=== PATIENT | female | born 1995 | race Caucasian/White ===

== ENCOUNTER 2016-09-06 18:20 | Emergency (ER) | payer BC, OTHER ==
[~2016-09-06] VITALS: Ht 162.6 cm; Wt 65.9 kg
[~2016-09-06 18:20] MED LIST: CLON0.1T PO; IBUP-232 PO; LISD20CA PO; LO LTAB PO; METR0.7528 VAGINAL; VALT1TAB PO
[2016-09-06 18:33] VITALS: BP 121/82; PULSE 85; RESP 16; TEMP 99.8; O2SAT 100
--- NOTE | 2016-09-06 19:04 | PD ---
HPI Chief Complaint: Related Problem Time Seen by Provider: 18:51 Travel History International Travel<30 days: No Contact w/Intl Traveler<30days: No Traveled to known affect area: No History of Present Illness HPI This 21-year-old female is complaining of vaginal bleeding. She says that she is 5 weeks and 6 days . She had some vaginal bleeding yesterday. She says she went to the emergency department at [facility] in [place]. She had an ultrasound and was told she did not have an ectopic . I believe heartbeat was not seen but was clearly a gestational size yolk sac intrauterine. PFSH Past Medical History Asthma: Yes Depression: Yes Diminished Hearing: No Immunizations Current: Yes Tetanus Vaccination: < 5 Years Influenza Vaccination: No ?: LMP: 07/27/16 Past Surgical History Genitourinary Surgery: Yes (Bladder as child) Social History Alcohol Use: No Tobacco Use: No Substance Use: No (Denies today) Allergies-Medications (Allergen,Severity, Reaction): Coded Allergies: No Known Allergies (Unverified , 09/06/16) Reported Meds & Prescriptions Reported Meds & Active Scripts Active Reported Valtrex (Valacyclovir HCl) 1 Gm Tab 1,000 Mg PO DAILY Review of Systems General / Constitutional: No: Fever, Chills Eyes: No: Diploplia, Blurred Vision HENT: No: Headaches Cardiovascular: No: Chest Pain or Discomfort, Palpitations Respiratory: No: Cough, Shortness of Breath Gastrointestinal: No: Vomiting, Diarrhea Genitourinary: No: Urgency, Frequency Musculoskeletal: No: Myalgias, Arthralgias Skin: No Rash Neurologic: No: Weakness, Dizziness Psychiatric: No: Anxiety Hematologic/Lymphatic: No: Easy Bruising Physical Exam Narrative GENERAL: Well-developed female SKIN: Warm and dry. HEAD: Atraumatic. Normocephalic. EYES: Pupils equal and round. No scleral icterus. No injection or drainage. ENT: No nasal bleeding or discharge. Mucous membranes pink and moist. NECK: Trachea midline. No JVD. CARDIOVASCULAR: Regular rate and rhythm. No murmur appreciated. RESPIRATORY: No accessory muscle use. Clear to auscultation. Breath sounds equal bilaterally. GASTROINTESTINAL: Abdomen soft, non-tender, nondistended. Hepatic and splenic margins not palpable. ASSURANCE SENIOR MANAGER: There is a minimal amount of dried blood in the vaginal vault. The os is closed. Uterus not palpably enlarged there is no tenderness MUSCULOSKELETAL: No obvious deformities. No clubbing. No cyanosis. No edema. NEUROLOGICAL: Awake and alert. No obvious cranial nerve deficits. Motor grossly within normal limits. Normal speech. PSYCHIATRIC: Appropriate mood and affect; insight and judgment normal. Data Data Last Documented VS Vital Signs Date Time Temp Pulse Resp B/P Pulse Ox O2 Delivery O2 Flow Rate FiO2 09/06/16 20:44 84 18 09/06/16 20:44 118/62 100 Room Air 09/06/16 18:33 99.8 Orders Complete Blood Count With Diff (09/06/16 18:59) Beta Hcg (Quant/Titer) (09/06/16 18:59) Labs Laboratory Tests Test 09/06/16 19:30 White Blood Count 10.8 TH/MM3 Red Blood Count 4.37 MIL/MM3 Hemoglobin 12.4 GM/DL Hematocrit 37.7 % Mean Corpuscular Volume 86.1 FL Mean Corpuscular Hemoglobin 28.3 PG Mean Corpuscular Hemoglobin 32.8 % Concent Red Cell Distribution Width 15.1 % Platelet Count 280 TH/MM3 Mean Platelet Volume 8.1 FL Neutrophils (%) (Auto) 67.8 % Lymphocytes (%) (Auto) 21.6 % Monocytes (%) (Auto) 6.7 % Eosinophils (%) (Auto) 3.4 % Basophils (%) (Auto) 0.5 % Neutrophils # (Auto) 7.3 TH/MM3 Lymphocytes # (Auto) 2.3 TH/MM3 Monocytes # (Auto) 0.7 TH/MM3 Eosinophils # (Auto) 0.4 TH/MM3 Basophils # (Auto) 0.1 TH/MM3 CBC Comment DIFF FINAL Differential Comment Human Chorionic Gonadotropin, [address] MIU/ML Quant MDM Medical Decision Making Medical Screen Exam Complete: Yes Emergency Medical Condition: Yes Medical Record Reviewed: Yes Differential Diagnosis Differential includes demise, intrauterine , threatened AB Narrative Course Titer today is 28,530s which is higher than the value from yesterday. She'll be released with instructions to follow-up with her own doctor is not bleeding or having pain at this time Diagnosis Primary Impression: Threatened Disposition: DISCHARGE HOME Condition: Stable Dominic Hurst MD Sep 06, 2016 19:04
[2016-09-06 19:45] VITALS: BP 122/63; PULSE 93; RESP 18; O2SAT 100
[2016-09-06 20:08] LABS: AUTOMATED NEUTROPHIL # 7.3 TH/MM3 (1.8-7.7); BASOPHIL # 0.1 TH/MM3 (0-0.2); BASOPHIL % 0.5 % (0.0-2.0); EOSINOPHIL # 0.4 TH/MM3 (0-0.4); EOSINOPHIL % 3.4 % (0.0-4.0); HEMATOCRIT 37.7 % (35.0-46.0); HEMO FLAGS DIFF FINAL; LYMPH % 21.6 % (9.0-44.0); LYMPHOCYTE # 2.3 TH/MM3 (1.0-4.8); MEAN CELL VOLUME 86.1 FL (80.0-100.0); MEAN CORPUSCULAR HEMOGLOBIN 28.3 PG (27.0-34.0); MEAN CORPUSCULAR HGB CONC 32.8 % (32.0-36.0); MONO % 6.7 % (0.0-8.0); NEUT % 67.8 % (16.0-70.0); PLATELET COUNT 280 TH/MM3 (150-450); RED BLOOD COUNT 4.37 MIL/MM3 (4.00-5.30); RED CELL DISTRIBUTION WIDTH 15.1 % (11.6-17.2); WHITE BLOOD COUNT 10.8 TH/MM3 (4.0-11.0)
[2016-09-06 20:39] LABS: BETA HCG QUANT 28530 MIU/ML (0-5)
[2016-09-06 20:44] VITALS: BP 118/62; PULSE 84; RESP 18; O2SAT 100
== END 2016-09-06 21:09 | disposition home or self-care (01) ==
LOC: PHED 18:20
DX: O20.0 Threatened abortion (principal); J45.909 Unspecified asthma, uncomplicated
CPT/HCPCS: 84702; 85025; 99284

== ENCOUNTER 2017-05-04 14:57 | Inpatient (IN) | payer BC, MEDICAID ==
[2017-05-04] VITALS (20 sets, daily range): BP systolic 113–142; BP diastolic 67–88; PULSE 81–103; RESP 17–18; TEMP 98–98.1
[~2017-05-04] VITALS: Ht 162.6 cm; Wt 89.4 kg
[~2017-05-04 14:57] MED LIST changes: -CLON0.1T PO; -IBUP-232 PO; -LISD20CA PO; -LO LTAB PO; -METR0.7528 VAGINAL
[2017-05-04] MEDS: LACTATED RINGER'S 1000 ML INJ 1,000 ML IV SCH ×2 (16:12→17:29)
[2017-05-04] MEDS ORDERED: LACTATED RINGER'S 1000 ML INJ 1,000 ML IV PRN (16:12)
[2017-05-04] MEDS ORDERED: MINERAL OIL 10 ML VIAL TOPICAL PRN (16:15)
[2017-05-04] MEDS ORDERED: MISOPROSTOL 100 MCG TAB VAGINAL ONE (16:15)
[2017-05-04] MEDS ORDERED: LIDOCAINE HCL 1% 50 ML VIAL I-DERMAL PRN (16:15)
[2017-05-04] MEDS ORDERED: PENICILLIN G POTASSIUM INJ 5,000,000 UNITS in SODIUM CHLORIDE 0.9% INJ 100 ML IV ONE (16:15)
[2017-05-04] MEDS ORDERED: OXYTOCIN 30 UNITS-500ML PREMIX 500 ML IV ONE (16:15)
[2017-05-04] MEDS ORDERED: CITRIC ACID-SODIUM CITRATE LIQ 30 ML UDC PO SCH (16:15)
[2017-05-04] MEDS ORDERED: SODIUM CHLORIDE 0.9% FLUSH 10 ML FLUSH IV FLUSH PRN (16:15)
[2017-05-04] MEDS ORDERED: SODIUM CHLORID 0.9% 500 ML INJ 500 ML IV PRN (16:15)
[2017-05-04] MEDS ORDERED: LIDOCAINE HCL 1% 50 ML VIAL INFIL PRN (16:15)
[2017-05-04] MEDS ORDERED: SODIUM CHLOR 0.9% 1000 ML INJ 1,000 ML IV PRN (16:32)
[2017-05-04 16:48] LABS: AUTOMATED NEUTROPHIL # 10.6 TH/MM3 (1.8-7.7); BASOPHIL % 0.3 % (0.0-2.0); EOSINOPHIL # 0.2 TH/MM3 (0-0.4); EOSINOPHIL % 1.4 % (0.0-4.0); HEMATOCRIT 40.1 % (35.0-46.0); HEMOGLOBIN 13.6 GM/DL (11.6-15.3); LYMPH % 11.9 % (9.0-44.0); LYMPHOCYTE # 1.6 TH/MM3 (1.0-4.8); MEAN CELL VOLUME 88.2 FL (80.0-100.0); MEAN PLATELET VOLUME 9.6 FL (7.0-11.0); MONO % 5.3 % (0.0-8.0); MONOCYTE # 0.7 TH/MM3 (0-0.9); NEUT % 81.1 % (16.0-70.0); PLATELET COUNT 190 TH/MM3 (150-450); RED BLOOD COUNT 4.54 MIL/MM3 (4.00-5.30); WHITE BLOOD COUNT 13.1 TH/MM3 (4.0-11.0)
[2017-05-04 17:53] LABS: BACTERIA, URINE FEW /hpf; BILIRUBIN, URINE NEG (NEG); BLOOD, URINE SMALL (NEG); GLUCOSE,URINE TRACE mg/dL (NEG); KETONE, URINE NEG (NEG); NITRITE,URINE NEG (NEG); SQUAMOUS EPITHELIAL CELL URINE 17 /hpf (0-5); URINE COLOR YELLOW (YELLW/STRAW); URINE LEUKOCYTE ESTERASE SMALL (NEG)
--- NOTE | 2017-05-04 18:29 | HHI.HP ---
HPI Chief Complaint induction at 40 weeks BP 150/90 Date Seen: May 04, 2017 Time Seen: 16:00 Travel History International Travel<30 Days: No Contact w/Intl Traveler<30Days: No Known Affected Area: No History of Present Illness HPI 22 yo induction for hypertension and 40 weeks Weeks Gestation: 40 Para: 0 : 1 History Past Medical History Medical History: Denies Significant Hx Past Surgical History Surgical History: No Previous Surgery Family History Family History: Negative Social History Alcohol Use: No Tobacco Use: No Substance Abuse: No Allergies-Medications (Allergen,Severity, Reaction): Coded Allergies: No Known Allergies (Unverified Allergy, Unknown, 05/04/17) Home Meds Reported Medications Valacyclovir (Valtrex) 1 Gm Tab, 1000 MG PO DAILY for Mgmt Viral Infection, #30 TAB 0 Refills 05/26/16 Review of Systems Except as stated in HPI: all other systems reviewed are Neg Physical Exam Vital Signs Date Time Temp Pulse Resp B/P (MAP) Pulse Ox O2 Delivery O2 Flow Rate FiO2 05/04/17 17:17 96 17 139/75 (96) 05/04/17 17:00 98.0 Narrative GENERAL: Well-nourished, well-developed patient. SKIN: Warm and dry. HEAD: Normocephalic and atraumatic. EYES: No scleral icterus. No injection or drainage. ENT: No nasal drainage noted. Mucous membranes pink. Airway patent. NECK: Supple, trachea midline. No JVD. CARDIOVASCULAR: Regular rate and rhythm without murmurs, gallops, or rubs. RESPIRATORY: Breath sounds equal bilaterally. No accessory muscle use. BREASTS: Bilateral exam showed no masses , no retractions, no nipple discharge. ABDOMEN/GI: Abdomen soft, non-tender, bowel sounds present, no rebound, no guarding Gravid to [-] weeks size Fundal Height: [-] GENITOURINARY: External Genitalia: intact and normal in appearance BUS glands: [-] Cervix: [-] Dilatation: ft Effacement: 80 Station: [-] Presentation: vtx Membranes: intact Uterine Contractions: no FHT's: Category: 1 Baseline: [-] Reactive: [-] Variability: [-] Decels: [-] EXTREMITIES: No cyanosis or edema. BACK: Nontender without obvious deformity. No CVA tenderness. NEUROLOGICAL: Awake and alert. Motor and sensory grossly within normal limits. Five out of 5 muscle strength in all muscle groups. Normal speech. Caprini VTE Risk Assessment Caprini VTE Risk Assessment: No/Low Risk (score <= 1) Caprini Risk Assessment Model Point Value = 1 Point Value = 2 Point Value = 3 Point Value = 5 Age 41-60 Minor surgery BMI > 25 kg/m2 Swollen legs Varicose veins or History of unexplained or recurrent spontaneous Oral contraceptives or hormone replacement Sepsis (< 1 month) Serious lung disease, including pneumonia (< 1 month) Abnormal pulmonary function Acute myocardial infarction Congestive heart failure (< 1 month) History of inflammatory bowel disease Medical patient at bed rest Age 61-74 Arthroscopic surgery Major open surgery (> 45 min) Laparoscopic surgery (> 45 min) Malignancy Confined to bed (> 72 hours) Immobilizing plaster cast Central venous access Age >= 75 History of VTE Family history of VTE Factor V Leiden Prothrombin [id number] Lupus anticoagulant Anticardiolipin antibodies Elevated serum homocysteine Heparin-induced thrombocytopenia Other congenital or acquired thrombophilia Stroke (< 1 month) Elective arthroplasty Hip, pelvis, or leg fracture Acute spinal cord injury (< 1 month) Prophylaxis Regimen Total Risk Factor Score Risk Level Prophylaxis Regimen 0-1 Low Early ambulation 2 Moderate Order ONE of the following: *Sequential Compression Device (SCD) *Heparin 5000 units SQ BID 3-4 Higher Order ONE of the following medications: *Heparin 5000 units SQ TID *Enoxaparin/Lovenox 40 mg SQ daily (WT < 150 kg, CrCl > 30 mL/min) *Enoxaparin/Lovenox 30 mg SQ daily (WT < 150 kg, CrCl > 10-29 mL/min) *Enoxaparin/Lovenox 30 mg SQ BID (WT < 150 kg, CrCl > 30 mL/min) AND/OR *Sequential Compression Device (SCD) 5 or more Highest Order ONE of the following medications: *Heparin 5000 units SQ TID (Preferred with Epidurals) *Enoxaparin/Lovenox 40 mg SQ daily (WT < 150 kg, CrCl > 30 mL/min) *Enoxaparin/Lovenox 30 mg SQ daily (WT < 150 kg, CrCl > 10-29 mL/min) *Enoxaparin/Lovenox 30 mg SQ BID (WT < 150 kg, CrCl > 30 mL/min) AND *Sequential Compression Device (SCD) Data Data Vital Signs Reviewed: Yes Orders Orders Admit To Inpatient (05/04/17 ) Code Status (05/04/17 16:12) Vital Signs (Adult) .Per protocol (05/04/17 16:12) Heart (05/04/17 16:12) Amnioinfusion (05/04/17 16:12) Urinary Catheter Management .ONCE (05/04/17 16:12) Lactated Ringer's 1000 Ml Inj (Lr 1000 M (05/04/17 16:12) Lactated Ringer's 1000 Ml Inj (Lr 1000 M (05/04/17 16:12) Sodium Chlorid 0.9% 500 Ml Inj (Ns 500 M (05/04/17 16:15) Sodium Chlor 0.9% 1000 Ml Inj (Ns 1000 M (05/04/17 16:32) Lidocaine 1% Inj (50 Ml) (Xylocaine 1% I (05/04/17 16:15) Citric Acid-Sodium Citrate Liq (Bicitra (05/04/17 16:15) Fentanyl Inj (Fentanyl Inj) (05/04/17 16:15) Fentanyl Inj (Fentanyl Inj) (05/04/17 16:15) Penicillin G Potassium Inj (Pfizerpen-G (05/04/17 16:15) Penicillin G Potassium Inj (Pfizerpen-G (05/04/17 20:00) Complete Blood Count With Diff (05/04/17 16:12) Hold Clot (05/04/17 16:12) Abo/Rh Blood Type (05/04/17 16:12) Urinalysis - C+S If Indicated (05/04/17 16:12) Drug Screen, Random Urine (05/04/17 16:12) Resp Oxygen Non Rebreathe Mask (05/04/17 ) ^ Epidural / Intrathecal Infus (05/04/17 16:12) Oxytocin 30 Units-500ml Premix (Pitocin (05/04/17 16:15) Lidocaine 1% Inj (50 Ml) (Xylocaine 1% I (05/04/17 16:15) Light Mineral Oil (Muri-Lube Oil) (05/04/17 16:15) Specimen To Be Collected PRN (05/04/17 16:12) Specimen To Be Collected PRN (05/04/17 16:12) Admit To Inpatient (05/04/17 ) ^ Labor Induction (05/04/17 16:14) ^ Vaginal Insert (05/04/17 16:14) ^ Vaginal Lavage (05/04/17 16:14) Heart (05/04/17 16:14) Misoprostol (Cytotec) (05/04/17 16:15) Sodium Chloride 0.9% Flush (Ns Flush) (05/04/17 21:00) Sodium Chloride 0.9% Flush (Ns Flush) (05/04/17 16:15) Inpatient Certification (05/04/17 ) Influenza (Quad) Vaccine Inj (Flu (Quadr (05/05/17 10:00) Group B Strep: Positive Labs Laboratory Tests Test 05/04/17 15:20 05/04/17 16:45 White Blood Count 13.1 Red Blood Count 4.54 Hemoglobin 13.6 Hematocrit 40.1 Mean Corpuscular Volume 88.2 Mean Corpuscular Hemoglobin 30.0 Mean Corpuscular Hemoglobin Concent 34.0 Red Cell Distribution Width 15.0 Platelet Count 190 Mean Platelet Volume 9.6 Neutrophils (%) (Auto) 81.1 Lymphocytes (%) (Auto) 11.9 Monocytes (%) (Auto) 5.3 Eosinophils (%) (Auto) 1.4 Basophils (%) (Auto) 0.3 Neutrophils # (Auto) 10.6 Lymphocytes # (Auto) 1.6 Monocytes # (Auto) 0.7 Eosinophils # (Auto) 0.2 Basophils # (Auto) 0.0 CBC Comment DIFF FINAL Differential Comment Urine Color YELLOW Urine Turbidity HAZY Urine pH 6.0 Urine Specific [place] 1.014 Urine Protein TRACE Urine Glucose (UA) TRACE Urine Ketones NEG Urine Occult Blood SMALL Urine Nitrite NEG Urine Bilirubin NEG Urine Urobilinogen LESS THAN 2.0 Urine Leukocyte Esterase SMALL Urine RBC 10 Urine WBC 4 Urine Squamous Epithelial Cells 17 Urine Bacteria FEW Microscopic Urinalysis Comment CULT NOT INDICATED Urine Opiates Screen NEG Urine Barbiturates Screen NEG Urine Amphetamines Screen NEG Urine Benzodiazepines Screen NEG Urine Cocaine Screen NEG Urine Cannabinoids Screen NEG Assessment/Plan Problem List: (1) 40 weeks gestation of ICD Codes: Z3A.40 - 40 weeks gestation of (2) Hypertension affecting in third trimester ICD Codes: O16.3 - Unspecified maternal hypertension, third trimester Assessment and Plan induction with cytotec, patient counselled about off label use Harsha Neumann MD May 04, 2017 18:29
[2017-05-04 20:13] LABS: ALT (GPT) 19 U/L (10-53); AST (GOT) 17 U/L (15-37); BICARBONATE 21.2 MEQ/L (21.0-32.0); BLOOD UREA NITROGEN 10 MG/DL (7-18); CALCIUM 8.6 MG/DL (8.5-10.1); CHLORIDE 105 MEQ/L (98-107); CREATININE 0.64 MG/DL (0.50-1.00); GLOMERULAR FILTRATION RATE 115 ML/MIN (>89); GLUCOSE,RANDOM 94 MG/DL (74-106); SODIUM (NA) 135 MEQ/L (136-145)
[2017-05-04 20:16] LABS: ALKALINE PHOSPHATASE 146 U/L (45-117); TOTAL BILIRUBIN ADULT 0.5 MG/DL (0.2-1.0); TOTAL PROTEIN 6.9 GM/DL (6.4-8.2)
[2017-05-04] MEDS: SODIUM CHLORIDE 0.9% FLUSH 10 ML FLUSH IV FLUSH SCH (21:00)
[2017-05-04] MEDS ORDERED: fentaNYL 2MCG-BUPIV 0.125% INJ 100 ML ONE (22:28)
[2017-05-04] MEDS ORDERED: DO NOT ADMINISTER ANTICOAGULANTS PRN (23:00)
[2017-05-04] MEDS ORDERED: ePHEDrine/NS 25 MG/5 ML SYR IV PUSH PRN (23:00)
[2017-05-04] MEDS ORDERED: NO SYSTEM NARCOTICS PRN (23:00)
[2017-05-04] MEDS ORDERED: fentaNYL 2MCG-BUPIV 0.125% 100 ML EPIDURAL SCH (23:00)
[2017-05-05] VITALS (27 sets, daily range): BP systolic 101–136; BP diastolic 50–103; PULSE 75–125; RESP 16–18; TEMP 97.7–98.5
[2017-05-05] MEDS ORDERED: OXYTOCIN 30 UNITS-500ML PREMIX 500 ML ONE (00:54)
[2017-05-05] MEDS: PENICILLIN G POTASSIUM INJ 2,500,000 UNITS in SODIUM CHLORIDE 0.9% INJ 100 ML IV SCH ×2 (01:00→01:14)
[2017-05-05] MEDS ORDERED: OXYTOCIN 10 UNIT/ML AMP ONE (04:48)
--- NOTE | 2017-05-05 05:13 | PD.OB.DELI ---
Weeks gestation: 40 Gest age assessed date: May 04, 2017 Gest age assessed time: 22:00 Pt started active labor?: Yes Active labor start date: May 05, 2017 Active labor start time: 00:01 Medical induction of labor?: Yes (hypertension) Medical induction start date: May 05, 2017 Medical induction start time: 00:01 Artificial rupture of membrane: No (2100) Anesthesia: Epidural Episiotomy: None Vaginal Delivery: Normal Presentation: Occiput anterior Nuchal Cord: None Delayed cord clamping (45 sec): Yes Delivery date: May 05, 2017 Delivery time: 04:43 One Minute : 9 Five Minute : 9 Placenta: Spontaneous delivery, Intact, 3 vessel cord Laceration: No lacerations Estimated blood loss: 300 Harsha Neumann MD May 05, 2017 05:13
[2017-05-05] MEDS ORDERED: OXYTOCIN 30 UNITS-500ML PREMIX 500 ML IV SCH (05:15)
[2017-05-05] MEDS ORDERED: ALUMINUM/MAGNESIUM/SIMETH 30 ML CUP PO PRN (05:15)
[2017-05-05] MEDS ORDERED: ZOLPIDEM TARTRATE 5 MG TAB PO PRN (05:15)
[2017-05-05] MEDS ORDERED: oxyCODONE/ACETAMINOPHEN 5 MG/325 MG TAB PO PRN (05:15)
[2017-05-05] MEDS ORDERED: ONDANSETRON ODT 4 MG TAB PO PRN (05:15)
[2017-05-05] MEDS ORDERED: SODIUM CHLORIDE 0.9% FLUSH 10 ML FLUSH IV FLUSH PRN (05:15)
[2017-05-05] MEDS: ACETAMINOPHEN 325 MG TAB PO PRN ×2 (09:53→15:48)
[2017-05-05] MEDS: IBUPROFEN 600 MG TAB PO PRN ×2 (09:55→15:48)
[2017-05-05] MEDS ORDERED: INFLUENZA VIRUS VACCINE (QUADRIVALENT) 0.5 ML SYR IM ONE (10:00)
[2017-05-05] MEDS: DOCUSATE SODIUM 50 MG/SENNA 8.6 MG TAB PO PRN (15:48)
[2017-05-05] MEDS ORDERED: MEASLES, MUMPS, RUBELLA VACCINE 0.5 ML VIAL SQ ONE (16:00)
[2017-05-05] MEDS ORDERED: DIPHTH/TETANUS/ACEL PERTUSSIS (BOOSTER) 0.5 ML VIAL/PFS IM ONE (16:00)
[2017-05-05] MEDS: SODIUM CHLORIDE 0.9% FLUSH 10 ML FLUSH IV FLUSH SCH ×2 (21:00)
[2017-05-06] MEDS: IBUPROFEN 600 MG TAB PO PRN ×4 (00:37→23:21)
[2017-05-06] MEDS: oxyCODONE/ACETAMINOPHEN 5 MG/325 MG TAB PO PRN ×4 (04:02→19:44)
[2017-05-06 08:00] VITALS: BP 127/74; PULSE 76; RESP 14; TEMP 97.6
[2017-05-06] MEDS: SODIUM CHLORIDE 0.9% FLUSH 10 ML FLUSH IV FLUSH SCH ×2 (09:00)
[2017-05-06] MEDS: WITCH HAZEL 50%/GLYCERIN 12.5% 40 PAD JAR TOPICAL PRN (09:13)
[2017-05-06] MEDS: BENZOCAINE 20% TOPICAL SPRAY 60 ML CAN TOPICAL PRN (09:13)
[2017-05-06] MEDS: DOCUSATE SODIUM 50 MG/SENNA 8.6 MG TAB PO PRN (09:14)
--- NOTE | 2017-05-06 12:36 | HHI.OB ---
Subjective Post Day: 1 Remarks doing well ready for dc in am Objective Vitals/I&O Vital Signs Date Time Temp Pulse Resp B/P (MAP) Pulse Ox O2 Delivery O2 Flow Rate FiO2 05/06/17 08:00 97.6 76 14 127/74 (91) 05/05/17 19:41 97.7 75 16 115/68 (84) 05/05/17 15:00 98.0 82 18 120/67 (84) Objective Remarks GENERAL: Well-nourished, well-developed patient. ABDOMEN/GI: Abdomen soft, non-tender. Fundus: Firm, non-tender at umbilicus. GENITOURINARY: Light to moderate bleeding. EXTREMITIES: No cyanosis or edema, non-tender, without signs of DVT. Medications and IVs Current Medications Medications (Trade) Dose Ordered Sig/Monica Route Start Time Stop Time Status Last Admin (NS Flush) 2 ml BID IV FLUSH 05/04/17 21:00 05/04/17 21:00 (NS Flush) 2 ml UNSCH PRN IV FLUSH 05/04/17 16:15 (NS Flush) 2 ml BID IV FLUSH 05/05/17 09:00 (NS Flush) 2 ml UNSCH PRN IV FLUSH 05/05/17 05:15 (Tylenol) 650 mg Q4H PRN PO 05/05/17 05:15 05/05/17 15:48 (Motrin) 600 mg Q6H PRN PO 05/05/17 05:15 05/06/17 09:13 (Percocet 5-325 Mg) 1 tab Q4H PRN PO 05/05/17 05:15 05/06/17 09:14 (Percocet 5-325 Mg) 2 tab Q4H PRN PO 05/05/17 05:15 05/05/17 20:10 (Americaine 20% Top Spr) 1 spray Q4H PRN TOPICAL 05/05/17 05:15 05/06/17 09:13 (Tucks Pads) 1 applic QID PRN TOPICAL 05/05/17 05:15 05/06/17 09:13 (Mayte-Colace) 2 tab Q12H PRN PO 05/05/17 05:15 05/06/17 09:14 (Ambien) 5 mg HS PRN PO 05/05/17 05:15 (Mag-Al Plus Susp Liq) 15 ml Q8H PRN PO 05/05/17 05:15 (Zofran Odt) 4 mg Q6H PRN PO 05/05/17 05:15 Assessment/Plan Problem List: (1) 40 weeks gestation of ICD Codes: Z3A.40 - 40 weeks gestation of (2) Hypertension affecting in third trimester ICD Codes: O16.3 - Unspecified maternal hypertension, third trimester Assessment and Plan dc home 05/07 Harsha Neumann MD May 06, 2017 12:36
--- NOTE | 2017-05-06 12:39 | HHI.DCPOC ---
Discharge Care Plan Diagnosis: (1) Spontaneous vaginal delivery Report Symptoms to Your Doctor -Temperature above 100.5 degrees -Redness, of incision or excessive or foul smelling drainage -Unusual pain or calf pain -Increased vaginal bleeding -Painful or difficulty urinating -Feelings of extreme sadness or anxiety after 2 weeks Goals to Promote Your Health * To prevent worsening of your condition and complications * To maintain your health at the optimal level Directions to Meet Your Goals Take your medications as prescribed Follow your dietary instruction Follow activity as directed Ensure plenty of rest for recovery Drink fluids for hydration Keep your appointments as scheduled Take your immunizations and boosters as scheduled If your symptoms worsen call your PCP, if no PCP go to Urgent Care Center or Emergency Room Smoking is Dangerous to Your Health. Avoid second hand smoke Call the 24-hour crisis hotline for domestic abuse at Harsha Neumann MD May 06, 2017 12:39
--- NOTE | 2017-05-06 12:39 | HHI.DCPOC ---
Discharge Care Plan Diagnosis: (1) Spontaneous vaginal delivery Report Symptoms to Your Doctor -Temperature above 100.5 degrees -Redness, of incision or excessive or foul smelling drainage -Unusual pain or calf pain -Increased vaginal bleeding -Painful or difficulty urinating -Feelings of extreme sadness or anxiety after 2 weeks Goals to Promote Your Health * To prevent worsening of your condition and complications * To maintain your health at the optimal level Directions to Meet Your Goals Take your medications as prescribed Follow your dietary instruction Follow activity as directed Ensure plenty of rest for recovery Drink fluids for hydration Keep your appointments as scheduled Take your immunizations and boosters as scheduled If your symptoms worsen call your PCP, if no PCP go to Urgent Care Center or Emergency Room Smoking is Dangerous to Your Health. Avoid second hand smoke Call the 24-hour crisis hotline for domestic abuse at Harsha Neumann MD May 06, 2017 12:39
--- NOTE | 2017-05-06 12:39 | HHI.DCPOC ---
Discharge Care Plan Diagnosis: (1) Spontaneous vaginal delivery Report Symptoms to Your Doctor -Temperature above 100.5 degrees -Redness, of incision or excessive or foul smelling drainage -Unusual pain or calf pain -Increased vaginal bleeding -Painful or difficulty urinating -Feelings of extreme sadness or anxiety after 2 weeks Goals to Promote Your Health * To prevent worsening of your condition and complications * To maintain your health at the optimal level Directions to Meet Your Goals Take your medications as prescribed Follow your dietary instruction Follow activity as directed Ensure plenty of rest for recovery Drink fluids for hydration Keep your appointments as scheduled Take your immunizations and boosters as scheduled If your symptoms worsen call your PCP, if no PCP go to Urgent Care Center or Emergency Room Smoking is Dangerous to Your Health. Avoid second hand smoke Call the 24-hour crisis hotline for domestic abuse at Harsha Neumann MD May 06, 2017 12:39
--- NOTE | 2017-05-06 12:42 | HHI.DS ---
Admission Date May 04, 2017 at 14:57 Discharge Date: May 07, 2017 Admitting Diagnosis Diagnosis: (1) Spontaneous vaginal delivery Diagnosis: Principal ICD Codes: O80 - Encounter for full-term uncomplicated delivery Delivery Date: May 05, 2017 Infant: Female Brief History 22 yo induction for hypertension and 40 weeks Hospital Course doing well SP dc home 05/07 Pt Condition on Discharge: Good Discharge Disposition: Discharge Home Discharge Instructions Diet Instructions: As Tolerated, No Restrictions Activities You Can Perform: Pelvic Rest Activities to Avoid: Driving for 24 hrs Follow up Referrals: BUTT TRIMMER - 2 Weeks @ [facility] with Harsha Neumann MD, John William C. MD May 06, 2017 12:42
--- NOTE | 2017-05-06 12:42 | HHI.DS ---
Admission Date May 04, 2017 at 14:57 Discharge Date: May 07, 2017 Admitting Diagnosis Diagnosis: (1) Spontaneous vaginal delivery Diagnosis: Principal ICD Codes: O80 - Encounter for full-term uncomplicated delivery Delivery Date: May 05, 2017 Infant: Female Brief History 22 yo induction for hypertension and 40 weeks Hospital Course doing well SP dc home 05/07 Pt Condition on Discharge: Good Discharge Disposition: Discharge Home Discharge Instructions Diet Instructions: As Tolerated, No Restrictions Activities You Can Perform: Pelvic Rest Activities to Avoid: Driving for 24 hrs Follow up Referrals: ASTROPHYSICS TEACHER - 2 Weeks @ [facility] with Harsha Neumann MD, John William C. MD May 06, 2017 12:42
--- NOTE | 2017-05-06 12:42 | HHI.DS ---
Admission Date May 04, 2017 at 14:57 Discharge Date: May 07, 2017 Admitting Diagnosis Diagnosis: (1) Spontaneous vaginal delivery Diagnosis: Principal ICD Codes: O80 - Encounter for full-term uncomplicated delivery Delivery Date: May 05, 2017 Infant: Female Brief History 22 yo induction for hypertension and 40 weeks Hospital Course doing well SP dc home 05/07 Pt Condition on Discharge: Good Discharge Disposition: Discharge Home Discharge Instructions Diet Instructions: As Tolerated, No Restrictions Activities You Can Perform: Pelvic Rest Activities to Avoid: Driving for 24 hrs Follow up Referrals: SENIOR CUSTOMER SERVICE REPRESENTATIVE - 2 Weeks @ [facility] with Harsha Neumann MD, John William C. MD May 06, 2017 12:42
[2017-05-06] MEDS ORDERED: OXYC1TAB63 PO (12:43)
[2017-05-06 20:00] VITALS: BP 125/74; PULSE 82; RESP 20; TEMP 98.2
[2017-05-07] MEDS: WITCH HAZEL 50%/GLYCERIN 12.5% 40 PAD JAR TOPICAL PRN ×2 (02:51→08:25)
[2017-05-07] MEDS: DOCUSATE SODIUM 50 MG/SENNA 8.6 MG TAB PO PRN (03:57)
[2017-05-07] MEDS: oxyCODONE/ACETAMINOPHEN 5 MG/325 MG TAB PO PRN ×2 (03:58→10:45)
[2017-05-07] MEDS: BENZOCAINE 20% TOPICAL SPRAY 60 ML CAN TOPICAL PRN (08:25)
[2017-05-07] MEDS: IBUPROFEN 600 MG TAB PO PRN (08:25)
[2017-05-07 08:30] VITALS: BP 136/69; PULSE 85; RESP 18; TEMP 97.9
== END 2017-05-07 11:50 | disposition home or self-care (01) | DRG 774 ==
LOC: H2EA 14:57 → H1EA 05-05 08:36
PROVIDERS: ADMIT Obstetrics & Gynecology; ATTEND Obstetrics & Gynecology
PROC: 3E0P7VZ Introduction of Hormone into Female Reproductive, Via Natural or Artificial Opening (ICD-10-PCS; 2017-05-04)
PROC: 00HU33Z Insertion of Infusion Device into Spinal Canal, Percutaneous Approach (ICD-10-PCS; 2017-05-04)
PROC: 3E0R3BZ Introduction of Anesthetic Agent into Spinal Canal, Percutaneous Approach (ICD-10-PCS; 2017-05-04)
PROC: 10E0XZZ Delivery of Products of Conception, External Approach (ICD-10-PCS; principal; 2017-05-05)
DX: O16.4 Unspecified maternal hypertension, complicating childbirth (principal); O98.52 Other viral diseases complicating childbirth; O99.824 Streptococcus B carrier state complicating childbirth; Z37.0 Single live birth; Z3A.40 40 weeks gestation of pregnancy; B00.9 Herpesviral infection, unspecified
CPT/HCPCS: 80053; 80307; 81001; 85025; 86900; 86901; 90686; 90715; J2540; J2590; J3010; J7120; Q2038